=== PATIENT | female | born 1980 ===

== ENCOUNTER 2020-09-04 16:00 | Emergency (ER) | payer OTHER ==
[~2020-09-04] VITALS: Ht 180.3 cm; Wt 84.5 kg
[2020-09-04 16:11] VITALS: BP 115/71; Ht 180.3 cm; Wt 84.5 kg
[2020-09-04] MEDS ORDERED: PREDNISONE50 MG PO (16:22)
== END 2020-09-04 16:48 | disposition home or self-care (01) ==
LOC: D.ER 16:00
DX: M54.40 Lumbago with sciatica, unspecified side (principal); M79.10 Myalgia, unspecified site